=== PATIENT | male | born 1960 | race American Indian/Alaskan Native ===

== ENCOUNTER 2018-11-21 06:50 | Day surgery (SDC) | payer BC, OTHER ==
[~2018-11-21 06:50] MED LIST: Lactated Ringers 1,000 ML IV SCH
[2018-11-21] MEDS ORDERED: Lidocaine 2% 5 ML SDV ONE (06:54)
[2018-11-21] MEDS ORDERED: Midazolam 1 MG/ML 2 ML SDV ONE (06:55)
[2018-11-21] MEDS ORDERED: fentaNYL 100 MCG/2 ML SDV ONE (06:55)
[2018-11-21] MEDS ORDERED: Propofol 200 MG/20 ML SDV ONE ×2 (06:55→08:45)
--- NOTE | 2018-11-21 07:37 | PCM.PREANE ---
Preanesthetic Assessment - Anesthesia/Transfusion/Family Hx Anesthesia History: Prior Anesthesia Without Reaction Family History of Anesthesia Reaction: No Transfusion History: No Prior Transfusion(s) Intubation History: Unknown - Review of Systems General: No Symptoms Pulmonary: No Symptoms Cardiovascular: No Symptoms Gastrointestinal: Other (symptoms of acid reflux for 2 years) Neurological: No Symptoms Other: Reports: None - Physical Assessment Height: 6 ft Weight: 108.862 kg ASA Class: 2 Mental Status: Alert & Oriented x3 Airway Class: Mallampati = 3 Dentition: Reports: Normal Dentition Thyro-Mental Finger Breadths: 2 Mouth Opening Finger Breadths: 2 ROM/Head Extension: Limited/Partial Lungs: Clear to Auscultation, Normal Respiratory Effort Cardiovascular: Regular Rate, Regular Rhythm - Allergies Allergies/Adverse Reactions: Allergies Allergy/AdvReac Type Severity Reaction Status Date / Time animal dander Allergy watery Verified 11/13/18 13:45 eyes/sneezing venom-wasp Allergy Swelling Verified 11/13/18 13:45 - Blood Blood Available: No - Anesthesia Plan Pre-Op Medication Ordered: None - Acknowledgements Anesthesia Type Planned: MAC Pt an Appropriate Candidate for the Planned Anesthesia: Yes Alternatives and Risks of Anesthesia Discussed w Pt/Guardian: Yes Pt/Guardian Understands and Agrees with Anesthesia Plan: Yes PreAnesthesia Questionnaire HEENT History: Reports: Other (See Below) Other HEENT History: wears glasses/contacts Cardiovascular History: Reports: High Cholesterol, Hypertension Respiratory History: Reports: None Gastrointestinal History: Reports: GERD Genitourinary History: Reports: BPH Musculoskeletal History: Reports: Arthritis Neurological History: Reports: None Psychiatric History: Reports: None Endocrine/Metabolic History: Reports: Obesity/BMI 30+ Hematologic History: Reports: None Immunologic History: Reports: None Oncologic (Cancer) History: Reports: None Dermatologic History: Reports: None - Past Surgical History Head Surgeries/Procedures: Reports: None HEENT Surgical History: Reports: None Cardiovascular Surgical History: Reports: None Respiratory Surgical History: Reports: None GI Surgical History: Reports: None Male Surgical History: Reports: None Endocrine Surgical History: Reports: None Neurological Surgical History: Reports: None Musculoskeletal Surgical History: Reports: Arthroscopic Knee, Shoulder Surgery Oncologic Surgical History: Reports: None Dermatological Surgical History: Reports: None - SUBSTANCE USE Smoking Status *Q: Never Smoker - HOME MEDS Home Medications: Home Meds Omeprazole 20 mg PO DAILY 11/13/18 [History] Ramipril 5 mg PO DAILY 11/13/18 [History] - CURRENT (IN HOUSE) MEDS Current Meds: Current Medications Lactated Ringer's (Ringers, Lactated) 1,000 mls @ 125 mls/hr IV ASDIRECTED VELMA Discontinued Medications Fentanyl (Sublimaze) Confirm Administered Dose 100 mcg .ROUTE .STK-MED ONE Stop: 11/21/18 06:56 Lidocaine (Xylocaine-Mpf 2%) Confirm Administered Dose 5 ml .ROUTE .STK-MED ONE Stop: 11/21/18 06:55 Midazolam HCl (Versed 1 Mg/Ml) Confirm Administered Dose 2 mg .ROUTE .STK-MED ONE Stop: 11/21/18 06:56 Propofol (Diprivan 20 Ml) Confirm Administered Dose 400 mg .ROUTE .STK-MED ONE Stop: 11/21/18 06:56
[2018-11-21] MEDS ORDERED: Glycopyrrolate 0.2 MG/ML SDV ONE ×3 (08:22→09:02)
--- NOTE | 2018-11-21 09:39 | PCM.OPNOTE ---
- General Post-Op/Procedure Note Date of Surgery/Procedure: 11/21/18 Operative Procedure(s): egd w bx. colonoscopy w bx Findings: see [id number] Pre Op Diagnosis: gerd and scrn colonoscopy Post-Op Diagnosis: Same Anesthesia Technique: Moderate Sedation Primary Surgeon: Bebo Marino Pathology: egd bx 40cm 2 mm sessile polyp bx Complications: None Condition: Good Free Text/Narrative:: Intake & Output 11/20/18 11/21/18 11/21/18 22:59 06:59 14:59 Intake Total 900 Balance 900
--- NOTE | 2018-11-21 09:43 | PCM48HPAN ---
Post Anesthesia Note - EVALUATION WITHIN 48HRS OF ANESTHETIC Vital Signs in Normal Range: Yes Patient Participated in Evaluation: Yes Respiratory Function Stable: Yes Airway Patent: Yes Cardiovascular Function Stable: Yes Hydration Status Stable: Yes Pain Control Satisfactory: Yes Nausea and Vomiting Control Satisfactory: Yes Mental Status Recovered: Yes Resp Rate: 12 - COMMENTS/OBSERVATIONS Free Text/Narrative:: no anesthesia problems
--- NOTE | 2018-11-21 11:57 | OR ---
SURGEON: Bebo Marino MD DATE OF PROCEDURE: 11/21/2018 PREOPERATIVE DIAGNOSES: Gastroesophageal reflux disease and screening colonoscopy. POSTOPERATIVE DIAGNOSES: Gastroesophageal reflux disease and screening colonoscopy. PROCEDURES PERFORMED: Esophagogastroduodenoscopy with biopsy and colonoscopy with biopsy. DESCRIPTION OF PROCEDURE: EGD: The patient was taken to the endoscopy room, and with the FOOD TASTER, Diprivan was administered. A well-lubricated EGD scope was gently inserted through the oropharynx, down the esophagus, passing through the gastroesophageal junction, into the stomach. The mucosa was examined upon the passage. Any etiology will be noted. Once in the stomach, we continued to advance to the distal antrum, passed through the pylorus into the second portion of the duodenum. Again, the mucosa was examined for any abnormality and etiology. The scope was then retrieved back to the stomach and then retroflexed to look at the fundus of the stomach. If a biopsy was indicated, we will biopsy the antrum, body, and gastroesophageal junction. The air will be sucked out while the scope is retrieved to reduce the patient's discomfort. The patient tolerated the procedure well. There were no intraoperative complications. Dr. Marino was present through the whole procedure. Prior to surgery, a time-out had been called, the patient identified, procedure identified and antibiotic administered. The patient was taken to the endoscopy room. A time out was called, patient identified, and procedure identified. Diprivan was then administrated. Patient went from awake to sleep, hearing doctor talking or door closing is normal. Perineum inspection and digital examination were then performed. A well- lubricated colonoscope was gently inserted through the rectum, advanced past the rectosigmoid junction, the descending colon, splenic flexure, transverse colon, hepatic flexure, ascending colon, arrived to the cecum. Cecum was identified as dictated in the finding. Then the scope was carefully withdrawn while attention was paid to the mucosal surface for any abnormality. Air will be sucked out during the scope withdrawal. At the rectum, retroflexed to examine any rectal diseases, fistula or hemorrhoids. During mucosal examination, abnormality or polyp was noted; picture taken and biopsy performed. Patient tolerated procedure well. There were no intraoperative complications, and Dr. Marino was present throughout the whole procedure. FINDINGS: EGD findings: 1. The patient is easily sedated with FOOD TASTER and Diprivan, the patient is soundly snoring. 2. Oropharynx and proximal esophagus are free of disease, stricture, or inflammation. Distal esophagus shows some kind of skipped lesion and salmon-colored change. Concern about the red and also flame-like salmon- colored, change consistent with moderate GERD. Stomach rugae are normal in appearance and antrum is a little bit inflamed. Duodenum is grossly normal. Stomach has lots of polyp, close to about 100 of them, most of them are very small, at 1 to 2 mm, some of them are pretty big. Biopsy of polyp at fundus and biopsy of polyp at greater curvature performed and then biopsy of the antrum and body and GE junction at 40. Retroflexed look at the fundus of the stomach, there was no hiatal hernia, and sucked out the gas while scope pulling out. Throughout the whole study, there was no ulcer, blood, bile, or food particle. Colonoscopy findings: 1. The patient is easily sedated with FOOD TASTER and Diprivan, the patient is soundly snoring. 2. Bowel prep is average with couple of stool balls, probably from the diverticulosis. 3. Colon rather straightforward. Cecum indicated by ileocecal fold, one-to- one indentation, and appendiceal orifice. Light emittance is not observed. Mucosa examined upon scope pulling out with some irrigation. The patient has a sessile polyp, mild, small, 2 mm, removed with biopsy forceps, at 40 cm distance. The patient also has mild diverticulosis at the sigmoid colon and no signs or symptoms of diverticulitis. No other inflammation, mass, growth, ulceration, bleeding observed. The patient has a mild external hemorrhoid. No internal hemorrhoid. The patient would benefit from repeat colonoscopy in 10 years from today or if clinically indicated otherwise. DILIA / FABIAN /[id number]
== END 2018-11-21 10:00 | disposition home or self-care (01) ==
LOC: MW.SDS 06:50
PROVIDERS: ATTEND Surgery
DX: Z12.11 Encounter for screening for malignant neoplasm of colon (principal); K63.5 Polyp of colon; K57.30 Diverticulosis of large intestine without perforation or abscess without bleeding; K64.4 Residual hemorrhoidal skin tags; K31.7 Polyp of stomach and duodenum; K21.0 Gastro-esophageal reflux disease with esophagitis; I10 Essential (primary) hypertension; E78.00 Pure hypercholesterolemia, unspecified; M19.90 Unspecified osteoarthritis, unspecified site; Z91.030 Bee allergy status; Z91.09 Other allergy status, other than to drugs and biological substances; Z79.899 Other long term (current) drug therapy
CPT/HCPCS: 43239; 45380; J2001; J2250; J2704; J3010; J3490; J7120; 00813

== ENCOUNTER 2021-09-01 07:19 | Day surgery (SDC) | payer BC, OTHER ==
[2021-09-01] MEDS ORDERED: Lidocaine 2% 5 ML SDV ONE (08:04)
[2021-09-01] MEDS ORDERED: Propofol 200 MG/20 ML SDV ONE (08:04)
[2021-09-01] MEDS ORDERED: fentaNYL 100 MCG/2 ML SDV ONE (08:04)
== END 2021-09-01 09:53 | disposition home or self-care (01) ==
LOC: MW.SDS 07:19
PROVIDERS: ATTEND Surgery
DX: K29.50 Unspecified chronic gastritis without bleeding (principal); K21.00 Gastro-esophageal reflux disease with esophagitis, without bleeding; K22.89 Other specified disease of esophagus; K31.7 Polyp of stomach and duodenum; I10 Essential (primary) hypertension; E78.00 Pure hypercholesterolemia, unspecified; K21.9 Gastro-esophageal reflux disease without esophagitis; E66.9 Obesity, unspecified; Z91.048 Other nonmedicinal substance allergy status; Z91.038 Other insect allergy status; Z98.890 Other specified postprocedural states; Z68.31 Body mass index [BMI] 31.0-31.9, adult; Z79.899 Other long term (current) drug therapy
CPT/HCPCS: 43239; J2704; J3010; J7120; 00731

== ENCOUNTER 2024-01-03 08:35 | Day surgery (SDC) | payer BC, OTHER ==
[2024-01-03] MEDS: Lactated Ringers 1,000 ML IV SCH (09:25)
[2024-01-03] MEDS ORDERED: Propofol 200 MG/20 ML SDV ONE (11:09)
[2024-01-03] MEDS ORDERED: Lidocaine 2% 5 ML SDV ONE (11:09)
== END 2024-01-03 12:02 | disposition home or self-care (01) ==
LOC: MW.SDS 08:35
PROVIDERS: ATTEND Surgery
DX: K31.7 Polyp of stomach and duodenum (principal); K29.50 Unspecified chronic gastritis without bleeding; K31.A0 Gastric intestinal metaplasia, unspecified; K21.9 Gastro-esophageal reflux disease without esophagitis; I10 Essential (primary) hypertension; E78.00 Pure hypercholesterolemia, unspecified; N40.0 Benign prostatic hyperplasia without lower urinary tract symptoms; Z79.899 Other long term (current) drug therapy; Z91.038 Other insect allergy status
CPT/HCPCS: 43239; J2704; J7120; 00731; J3490